=== PATIENT | male | born 1950 | race Caucasian/White ===

== ENCOUNTER 2017-07-31 07:12 | Inpatient (IN) | payer OTHER, MEDICARE ==
[~2017-07-31] VITALS: Ht 188 cm; Wt 127.5 kg
[~2017-07-31 07:12] MED LIST: ASPI-621 PO; ATOR-2 PO; CLOP75TA PO; EPINEPHRINE 1 MG/ML, 1ML ONE; KETOROLAC 60 MG/2 ML ONE; METO25TA35 PO; MULT-516 PO; NAPR500T4 PO; ROPIvacaine/PF 0.2%, 20 ML ONE; SODIUM CHLORIDE 0.9% 100 ML ONE; TRANEXAMIC ACID 100 MG/ML, 10ML ONE
[2017-07-31] MEDS ORDERED: VANCOMYCIN PER PHARMACY MC STA (07:24)
[2017-07-31] MEDS ORDERED: VANCOMYCIN 1,500 MG in SODIUM CHLORIDE 0.9% 250 ML IV ONE (07:30)
[2017-07-31] MEDS ORDERED: LACTATED RINGERS 1,000 ML IV SCH (07:33)
[2017-07-31] MEDS ORDERED: GABAPENTIN 300 MG CAPSULE PO STA (07:36)
[2017-07-31] MEDS ORDERED: OxyconTIN ER 10 MG TAB.ER PO STA (07:36)
[2017-07-31] MEDS ORDERED: ACETAMINOPHEN 500 MG TABLET PO STA (07:36)
[2017-07-31] MEDS ORDERED: VANCOMYCIN 2,000 MG in SODIUM CHLORIDE 0.9% 500 ML IV ONE (08:00)
[2017-07-31] MEDS ORDERED: FENTANYL PF 100 MCG/2ML ONE (09:33)
[2017-07-31] MEDS ORDERED: MIDAZOLAM 1 MG/ML, 2ML ONE (09:33)
[2017-07-31] MEDS ORDERED: ONDANSETRON 2MG/ML, 2ML IV PRN (10:30)
[2017-07-31] MEDS ORDERED: ACETAMINOPHEN 325 MG TABLET PO PRN ×2 (10:30→11:30)
[2017-07-31] MEDS ORDERED: DIPHENHYDRAMINE 50 MG CAPSULE PO PRN (10:30)
[2017-07-31] MEDS ORDERED: SENNA/DOCUSATE TABLET PO PRN (10:30)
[2017-07-31] MEDS ORDERED: MAGNESIUM HYDROXIDE 8%, 30ML UDC PO PRN (10:30)
[2017-07-31] MEDS ORDERED: ONDANSETRON 4 MG TABLET PO PRN (10:30)
[2017-07-31] MEDS ORDERED: ALUMINUM/MAG/SIMETHICONE 30 ML UDC PO PRN (10:30)
[2017-07-31] MEDS ORDERED: MIDAZOLAM 1 MG/ML, 2ML IV PRN (11:30)
[2017-07-31] MEDS ORDERED: OXYcodone 5 MG/5 ML ORAL.SOL UDC PO PRN (11:30)
[2017-07-31] MEDS ORDERED: ALBUTEROL/IPRATROPIUM 2.5MG/0.5MG, 3 ML NPPB PRN (11:30)
[2017-07-31] MEDS ORDERED: hydrALAzine 20 MG/ML, 1ML IV PRN (11:30)
[2017-07-31] MEDS ORDERED: LABETALOL 5MG/ML, 20ML IV PRN (11:30)
[2017-07-31] MEDS ORDERED: HYDROcodone/APAP 7.5-325MG/15ML UDC PO PRN (11:30)
[2017-07-31] MEDS ORDERED: METOPROLOL 1 MG/ML, 5ML IV PRN (11:30)
[2017-07-31] MEDS ORDERED: FENTANYL PF 100 MCG/2ML IV PRN (11:30)
[2017-07-31] MEDS ORDERED: ONDANSETRON 2MG/ML, 2ML IVPush PRN (11:30)
[2017-07-31] MEDS ORDERED: PROMETHAZINE 25 MG/ML, 1ML IV PRN (11:30)
[2017-07-31] MEDS ORDERED: ALBUTEROL SULFATE 2.5 MG/3 ML NPPB PRN (11:30)
[2017-07-31] MEDS ORDERED: DIAZEPAM 5 MG/ML, 2ML IVPush PRN (11:30)
[2017-07-31] MEDS ORDERED: MEPERIDINE/PF 25MG/0.5ML IVPush PRN (11:30)
[2017-07-31] MEDS ORDERED: EPHEDRINE 50 MG/ML, 1ML IVPush PRN (11:30)
[2017-07-31] MEDS ORDERED: DEXAMETHASONE 4 MG/ML, 1ML ONE (11:55)
[2017-07-31] MEDS ORDERED: ONDANSETRON 2MG/ML, 2ML ONE (11:55)
[2017-07-31] MEDS ORDERED: CEFAZOLIN 1,000 MG ONE (11:55)
[2017-07-31] MEDS ORDERED: PROPOFOL 10 MG/ML, 20ML ONE (11:55)
[2017-07-31] MEDS ORDERED: MEPERIDINE/PF 25MG/0.5ML ONE (12:32)
[2017-07-31] MEDS ORDERED: ACETAMINOPHEN 650 MG/20.3 ML UDC ONE (12:32)
[2017-07-31] MEDS ORDERED: ACETAMINOPHEN 325 MG TABLET ONE (12:32)
[2017-07-31] MEDS ORDERED: OXYcodone 5 MG/5 ML ORAL.SOL UDC ONE (12:32)
[2017-07-31] MEDS ORDERED: HYDROmorphone 1 MG/ML, 1ML ONE (12:32)
[2017-07-31] MEDS: HYDROmorphone 1 MG/ML, 1ML IV PRN ×2 (12:37→12:53)
[2017-07-31 13:30] VITALS: BP 127/77
[2017-07-31] MEDS: D5%-0.45NACL+KCL 20MEQ 1,000 ML IV SCH ×2 (14:14→16:45)
[2017-07-31] MEDS: OXYcodone IR 5MG TABLET PO PRN ×2 (16:45→20:40)
[2017-07-31 19:30] VITALS: BP 115/67
[2017-07-31] MEDS: CEFAZOLIN PMX 1GM/50ML 50 ML IVPB SCH (19:48)
[2017-07-31] MEDS ORDERED: VANCOMYCIN PMX 1GM/200ML 200 ML IVPB ONE (20:30)
[2017-07-31] MEDS: ATORVASTATIN 80 MG TABLET PO SCH (20:39)
[2017-07-31] MEDS: DIAZEPAM 5 MG TABLET PO PRN (20:40)
[2017-07-31] MEDS: DOCUSATE 100 MG CAPSULE PO SCH (20:40)
[2017-07-31] MEDS: METOPROLOL TARTRATE 25 MG TABLET PO SCH (20:40)
[2017-08-01] MEDS: DIAZEPAM 5 MG TABLET PO PRN ×2 (00:31→11:09)
[2017-08-01] MEDS: OXYcodone IR 5MG TABLET PO PRN ×6 (00:32→21:39)
[2017-08-01 00:35] VITALS: BP 105/64
[2017-08-01 04:10] VITALS: BP 104/64
[2017-08-01] MEDS: CEFAZOLIN PMX 1GM/50ML 50 ML IVPB SCH (04:33)
[2017-08-01 05:37] LABS: HEMOGLOBIN 12.3 g/dL (13.7-18.0)
[2017-08-01] MEDS ORDERED: DEXAMETHASONE 4 MG/ML, 1ML IVPush SCH (06:00)
[2017-08-01] MEDS: D5%-0.45NACL+KCL 20MEQ 1,000 ML IV SCH ×2 (06:05→15:08)
[2017-08-01] MEDS: RIVAROXABAN 10 MG TABLET PO SCH (06:24)
[2017-08-01 07:10] VITALS: BP 111/63
[2017-08-01] MEDS: TAMSULOSIN 0.4 MG CAP.ER.24H PO SCH (07:40)
[2017-08-01] MEDS: DOCUSATE 100 MG CAPSULE PO SCH ×2 (07:40→21:37)
[2017-08-01] MEDS: METOPROLOL TARTRATE 25 MG TABLET PO SCH ×2 (07:40→21:38)
[2017-08-01] MEDS: KETOROLAC 30 MG/1 ML IV SCH ×2 (11:09→18:10)
[2017-08-01 15:16] VITALS: BP 117/67
[2017-08-01 19:24] VITALS: BP 109/54
[2017-08-01] MEDS: ATORVASTATIN 80 MG TABLET PO SCH (21:38)
[2017-08-02] MEDS: OXYcodone IR 5MG TABLET PO PRN ×4 (01:32→12:59)
[2017-08-02] MEDS: DIAZEPAM 5 MG TABLET PO PRN (01:34)
[2017-08-02 01:36] VITALS: BP 122/72
[2017-08-02] MEDS: KETOROLAC 30 MG/1 ML IV SCH (01:47)
[2017-08-02] MEDS: HYDROmorphone 1 MG/ML, 1ML IV PRN ×2 (01:56→08:50)
[2017-08-02 05:17] LABS: HEMATOCRIT 34.8 % (39.2-51.8); HEMOGLOBIN 11.7 g/dL (13.7-18.0)
[2017-08-02] MEDS: D5%-0.45NACL+KCL 20MEQ 1,000 ML IV SCH ×2 (07:08→11:01)
[2017-08-02 07:32] VITALS: BP 122/74
[2017-08-02] MEDS: METOPROLOL TARTRATE 25 MG TABLET PO SCH (08:56)
[2017-08-02] MEDS: RIVAROXABAN 10 MG TABLET PO SCH (08:56)
[2017-08-02] MEDS: DOCUSATE 100 MG CAPSULE PO SCH (08:57)
[2017-08-02] MEDS: TAMSULOSIN 0.4 MG CAP.ER.24H PO SCH (08:58)
[2017-08-02 14:15] VITALS: BP 106/60
[2017-08-02] MEDS ORDERED: RIVA10TA PO (15:18)
[2017-08-02] MEDS ORDERED: DOCU-131 PO (15:19)
[2017-08-02] MEDS ORDERED: ONDA4TAB7 PO (15:20)
[2017-08-02] MEDS ORDERED: DIAZ5TAB PO (15:21)
[2017-08-02] MEDS ORDERED: TRAM50TA2 PO (15:23)
[2017-08-02] MEDS ORDERED: CELE200C PO (15:24)
[2017-08-02] MEDS ORDERED: OXYC5CAP2 PO (15:25)
== END 2017-08-02 15:38 | disposition home or self-care (01) | DRG 470 ==
LOC: ORIP 07:12 → 4NOR 13:27 → DCLOUNGE 08-02 15:14
PROVIDERS: ADMIT Orthopaedic Surgery; ATTEND Orthopaedic Surgery
PROC: 0SRD0J9 Replacement of Left Knee Joint with Synthetic Substitute, Cemented, Open Approach (ICD-10-PCS; principal; 2017-07-31 09:45)
DX: M17.12 Unilateral primary osteoarthritis, left knee (principal)
CPT/HCPCS: 36415; 85014; 85018; C1713; J0171; J0690; J1100; J1170; J1885; J2175; J2250; J2405; J2704; J2795; J3010; J3370; C1776; J3480; J7050; J7120

== ENCOUNTER 2018-03-12 15:08 | Emergency (ER) | payer MEDICARE, OTHER ==
[~2018-03-12] VITALS: Ht 188 cm; Wt 113.0 kg
[~2018-03-12 15:08] MED LIST changes: +CELE200C PO; +DIAZ5TAB PO; +DOCU-131 PO; -EPINEPHRINE 1 MG/ML, 1ML ONE; -KETOROLAC 60 MG/2 ML ONE; +NAPR-685 PO; -NAPR500T4 PO; +ONDA4TAB7 PO; +OXYC5CAP2 PO; +RIVA10TA PO; -ROPIvacaine/PF 0.2%, 20 ML ONE; -SODIUM CHLORIDE 0.9% 100 ML ONE; +TRAM50TA2 PO; -TRANEXAMIC ACID 100 MG/ML, 10ML ONE
[2018-03-12] MEDS ORDERED: ASPIRIN 81 MG TABLET CHEW PO ONE (15:30)
[2018-03-12] MEDS ORDERED: ASPIRIN 81 MG TABLET CHEW ONE (16:05)
[2018-03-12 16:15] LABS: BASOPHILS # (AUTO) 0.03 x10^3/uL (0-0.1); BASOPHILS % (AUTO) 0 % (0-1); EOSINOPHILS # (AUTO) 0.24 x10^3/uL (0-0.4); EOSINOPHILS % (AUTO) 3 % (1-7); LYMPHOCYTES # (AUTO) 1.54 x10^3/uL (1-3.4); LYMPHOCYTES % (AUTO) 21 % (22-44); MD NO; MEAN CORPUSCULAR HEMOGLOBIN 30.4 pg (27.5-34.5); MEAN CORPUSCULAR HGB CONC 33.8 g/dL (33.2-36.2); MEAN CORPUSCULAR VOLUME 89.8 fL (81-97); MEAN PLATELET VOLUME 6.9 fL (7.4-10.4); MONOCYTES # (AUTO) 0.46 x10^3/uL (0.2-0.8); MONOCYTES % (AUTO) 6 % (2-9); NEUTROPHILS # (AUTO) 5.06 x10^3/uL (1.8-6.8); NEUTROPHILS % (AUTO) 69 % (42-75); PLATELET COUNT 332 x10^3/uL (130-400)
[2018-03-12 16:29] LABS: ALBUMIN 3.9 g/dL (3.4-5.0); ANION GAP 9 mmol/L (5-15); CALCIUM 9.1 mg/dL (8.5-10.1); CHLORIDE 108 mmol/L (98-107); CREATININE 0.75 mg/dL (0.7-1.3)
[2018-03-12 16:32] LABS: TROPONIN I < 0.015 ng/mL (0.000-0.045)
[2018-03-12 16:54] LABS: CULTURE INDICATED? NO; MICROSCOPIC INDICATED
[2018-03-12 17:11] LABS: FREE T4 (FREE THYROXINE) 1.2 ng/dL (0.76-1.46); THYROID STIMULATING HORMONE 1.66 mIU/L (0.358-3.740)
[2018-03-12 17:15] VITALS: BP 148/88
== END 2018-03-12 17:32 | disposition home or self-care (01) ==
LOC: ED 17:26
DX: M79.602 Pain in left arm (principal); R19.7 Diarrhea, unspecified; R11.2 Nausea with vomiting, unspecified; R10.13 Epigastric pain; R63.4 Abnormal weight loss; R63.0 Anorexia; I25.2 Old myocardial infarction; I10 Essential (primary) hypertension; Z87.891 Personal history of nicotine dependence
CPT/HCPCS: 36415; 71046; 80048; 81001; 82040; 84439; 84443; 84484; 85025; 93005; 99285

== ENCOUNTER → 2018-04-20 | Outpatient (CLI) | payer MEDICARE ==
[~2018-04-20] MED LIST changes: +REGADENOSON 0.4 MG/5 ML SYRINGE ONE
== END | disposition home or self-care (01) ==
LOC: CFH 10:48
PROVIDERS: ATTEND Internal Medicine Cardiovascular Disease
DX: I21.19 ST elevation (STEMI) myocardial infarction involving other coronary artery of inferior wall (principal); I34.0 Nonrheumatic mitral (valve) insufficiency; I35.8 Other nonrheumatic aortic valve disorders; E11.9 Type 2 diabetes mellitus without complications; E78.5 Hyperlipidemia, unspecified; Z87.891 Personal history of nicotine dependence
CPT/HCPCS: 78452; 93017; 93306; A9502; J2785

== ENCOUNTER → 2019-10-17 | Outpatient (CLI) | payer MEDICARE ==
[~2019-10-17] MED LIST changes: -ASPI-621 PO; +ASPI81TA45 PO; -REGADENOSON 0.4 MG/5 ML SYRINGE ONE; -RIVA10TA PO; +RIVA10TA2 PO
== END | disposition home or self-care (01) ==
LOC: CFH 13:22
PROVIDERS: ATTEND Nurse Practitioner Family
DX: Z12.2 Encounter for screening for malignant neoplasm of respiratory organs (principal); I25.10 Atherosclerotic heart disease of native coronary artery without angina pectoris; R63.4 Abnormal weight loss; Z87.891 Personal history of nicotine dependence
CPT/HCPCS: G0297